=== PATIENT | male | born 1955 | race Caucasian/White ===

== ENCOUNTER → 2016-11-13 | Outpatient (CLI) | payer MEDICARE, OTHER ==
[~2016-11-13] MED LIST: ALBU8.5H5 INH; CEFD300C37 PO; DOXY100T PO; FLUT1DIS3 INH; HYDR-3307 PO; LISI40TA PO; LORA-445 PO; LORA10CA PO; METH4TAB2 PO; MORP15TA3 PO; MV-M1LOZ PO; PRED5TAB PO
== END | disposition home or self-care (01) ==
LOC: RAD 17:21
PROVIDERS: ATTEND Family Medicine
DX: S32.019A Unspecified fracture of first lumbar vertebra, initial encounter for closed fracture (principal); M43.27 Fusion of spine, lumbosacral region; X58.XXXA Exposure to other specified factors, initial encounter; Y93.89 Activity, other specified; Y92.89 Other specified places as the place of occurrence of the external cause; Y99.8 Other external cause status
CPT/HCPCS: 72100

== ENCOUNTER 2018-06-14 15:14 | Inpatient (IN) | payer MEDICARE ==
[~2018-06-14] VITALS: Ht 170.2 cm; Wt 89.7 kg
[2018-06-14] MEDS ORDERED: methylPREDNISolone SOD SUCC 125 MG/2 ML IVP ONE (15:30)
[2018-06-14] MEDS ORDERED: SODIUM CHLORIDE FLUSH 10ML SYR IVF ONE (15:30)
[2018-06-14] MEDS ORDERED: ALBUTEROL/IPRATROPIUM 2.5MG/0.5MG, 3 ML NPPB PRN (15:30)
[2018-06-14] MEDS ORDERED: methylPREDNISolone SOD SUCC 125 MG/2 ML ONE (15:39)
[2018-06-14] MEDS ORDERED: ALBUTEROL/IPRATROPIUM 2.5MG/0.5MG, 3 ML ONE (15:44)
[2018-06-14 15:51] LABS: BASOPHILS # (AUTO) 0.03 x10^3/uL (0-0.1); BASOPHILS % (AUTO) 0 % (0-1); EOSINOPHILS # (AUTO) 0.02 x10^3/uL (0-0.4); EOSINOPHILS % (AUTO) 0 % (1-7); LYMPHOCYTES # (AUTO) 0.76 x10^3/uL (1-3.4); LYMPHOCYTES % (AUTO) 9 % (22-44); MD NO; MEAN CORPUSCULAR HEMOGLOBIN 34.5 pg (27.5-34.5); MEAN CORPUSCULAR HGB CONC 33.1 g/dL (33.2-36.2); MEAN CORPUSCULAR VOLUME 104.1 fL (81-97); MEAN PLATELET VOLUME 9.8 fL (7.4-10.4); MONOCYTES # (AUTO) 1.09 x10^3/uL (0.2-0.8); MONOCYTES % (AUTO) 12 % (2-9); NEUTROPHILS % (AUTO) 78 % (42-75); PLATELET COUNT 168 x10^3/uL (130-400); RED BLOOD COUNT 5.27 x10^6/uL (4.38-5.82)
[2018-06-14] MEDS ORDERED: ALBUTEROL 0.5%, 20ML ONE (15:53)
[2018-06-14] MEDS ORDERED: LISI-167 PO (15:56)
[2018-06-14] MEDS ORDERED: AZITHROMYCIN 500 MG in SODIUM CHLORIDE 0.9% 250 ML IV ONE (16:00)
[2018-06-14] MEDS ORDERED: MAGNESIUM SULFATE PMX 2GM/50ML 50 ML IV ONE (16:00)
[2018-06-14 16:04] LABS: ALBUMIN 4.1 g/dL (3.4-5.0); ANION GAP 7 mmol/L (5-15); CALCIUM 9.4 mg/dL (8.5-10.1); CHLORIDE 97 mmol/L (98-107)
[2018-06-14] MEDS ORDERED: ALBUTEROL 0.5%, 20ML NPPBCONT ONE (16:05)
[2018-06-14 16:10] LABS: ALANINE AMINOTRANSFERASE 36 U/L (12-78); ALKALINE PHOSPHATASE 82 U/L (45-117); BILIRUBIN,TOTAL 0.6 mg/dL (0.2-1.0); TOTAL PROTEIN 7.9 g/dL (6.4-8.2); TROPONIN I < 0.015 ng/mL (0.000-0.045)
[2018-06-14] MEDS ORDERED: ONDANSETRON 2MG/ML, 2ML IVPush PRN (17:30)
[2018-06-14] MEDS ORDERED: ACETAMINOPHEN 325 MG TABLET PO PRN (17:30)
[2018-06-14] MEDS ORDERED: ENOXAPARIN 40 MG/0.4 ML SQ SCH (17:30)
[2018-06-14] MEDS ORDERED: CEFTRIAXONE 1,000 MG in SODIUM CHLORIDE 0.9% 50 ML IVPB SCH (17:30)
[2018-06-14] MEDS ORDERED: NICOTINE 14MG/24 HR PATCH.TD24 TD ONE (18:00)
[2018-06-14] MEDS: HEPARIN 5,000 UNITS/ML, 1ML SQ SCH (18:00)
[2018-06-14] MEDS: ALBUTEROL/IPRATROPIUM 2.5MG/0.5MG, 3 ML NPPB SCH ×2 (18:28→22:56)
[2018-06-14 20:00] VITALS: BP 109/70
[2018-06-14] MEDS: methylPREDNISolone SOD SUCC 40 MG/ML IVPush SCH (20:55)
[2018-06-14] MEDS: CEFTRIAXONE PMX 1GM/50ML 50 ML IVPB SCH (20:55)
[2018-06-14] MEDS ORDERED: HYDROcodone/APAP 10/325 MG TABLET PO SCH (21:00)
[2018-06-14 21:09] VITALS: BP 109/70
[2018-06-14] MEDS: DOXYCYCLINE 100 MG in DEXTROSE 5% 250 ML IVPB SCH (22:10)
[2018-06-15 01:31] VITALS: BP 114/69
[2018-06-15] MEDS: ALBUTEROL/IPRATROPIUM 2.5MG/0.5MG, 3 ML NPPB SCH ×6 (03:00→23:16)
[2018-06-15] MEDS: methylPREDNISolone SOD SUCC 40 MG/ML IVPush SCH ×4 (03:06→20:59)
[2018-06-15] MEDS: HYDROcodone/APAP 10/325 MG TABLET PO SCH ×4 (03:06→20:59)
[2018-06-15] MEDS: HEPARIN 5,000 UNITS/ML, 1ML SQ SCH ×2 (05:26→15:40)
[2018-06-15 08:05] VITALS: BP 131/78
[2018-06-15] MEDS ORDERED: FLUTICASONE/VILANTEROL 100-25MCG/INH INH SCH (09:00)
[2018-06-15] MEDS ORDERED: PLEASE ENTER ALLERGIES MC SCH (09:30)
[2018-06-15] MEDS: LISINOPRIL 10 MG TABLET PO SCH (09:52)
[2018-06-15] MEDS: BENZONATATE 100 MG CAPSULE PO SCH ×3 (09:52→20:59)
[2018-06-15] MEDS: DOXYCYCLINE 100 MG in DEXTROSE 5% 250 ML IVPB SCH ×2 (09:53→21:46)
[2018-06-15] MEDS ORDERED: ALBUTEROL/IPRATROPIUM 2.5MG/0.5MG, 3 ML NPPB PRN (11:00)
[2018-06-15 12:26] VITALS: BP 116/70
[2018-06-15] MEDS: BUDESONIDE 0.5 MG/2 ML INHA INH SCH ×2 (14:28→18:50)
[2018-06-15 20:12] VITALS: BP 104/66
[2018-06-15] MEDS: CEFTRIAXONE PMX 1GM/50ML 50 ML IVPB SCH (20:59)
[2018-06-16] MEDS: HYDROcodone/APAP 10/325 MG TABLET PO SCH ×4 (03:08→21:21)
[2018-06-16 03:14] VITALS: BP 116/75
[2018-06-16] MEDS: methylPREDNISolone SOD SUCC 40 MG/ML IVPush SCH (03:48)
[2018-06-16] MEDS: HEPARIN 5,000 UNITS/ML, 1ML SQ SCH ×2 (05:18→18:00)
[2018-06-16] MEDS: BUDESONIDE 0.5 MG/2 ML INHA INH SCH ×2 (06:40→18:12)
[2018-06-16] MEDS: ALBUTEROL/IPRATROPIUM 2.5MG/0.5MG, 3 ML NPPB SCH ×5 (06:40→22:12)
[2018-06-16 08:03] VITALS: BP 125/73
[2018-06-16] MEDS: LISINOPRIL 10 MG TABLET PO SCH (09:11)
[2018-06-16] MEDS: BENZONATATE 100 MG CAPSULE PO SCH ×3 (09:12→21:21)
[2018-06-16] MEDS: DOXYCYCLINE 100 MG in DEXTROSE 5% 250 ML IVPB SCH ×2 (10:16→22:18)
[2018-06-16] MEDS ORDERED: methylPREDNISolone SOD SUCC 40 MG/ML IVPush SCH (11:30)
[2018-06-16] MEDS ORDERED: methylPREDNISolone SOD SUCC 125 MG/2 ML ONE (12:41)
[2018-06-16 13:31] VITALS: BP 144/78
[2018-06-16] MEDS: methylPREDNISolone SOD SUCC 125 MG/2 ML IVPush SCH ×2 (13:42→21:21)
[2018-06-16 19:12] VITALS: BP 114/68
[2018-06-16] MEDS: CEFTRIAXONE PMX 1GM/50ML 50 ML IVPB SCH (21:20)
[2018-06-16] MEDS: GUAIFENESIN/DM 200-20MG, 10ML UDC PO PRN (21:28)
[2018-06-17 01:32] VITALS: BP 116/72
[2018-06-17] MEDS: HYDROcodone/APAP 10/325 MG TABLET PO SCH ×4 (03:12→20:57)
[2018-06-17 05:03] LABS: BASOPHILS # (AUTO) 0.01 x10^3/uL (0-0.1); BASOPHILS % (AUTO) 0 % (0-1); EOSINOPHILS # (AUTO) 0.03 x10^3/uL (0-0.4); EOSINOPHILS % (AUTO) 0 % (1-7); LYMPHOCYTES # (AUTO) 0.45 x10^3/uL (1-3.4); LYMPHOCYTES % (AUTO) 3 % (22-44); MD NO; MEAN CORPUSCULAR HEMOGLOBIN 34.8 pg (27.5-34.5); MEAN CORPUSCULAR HGB CONC 33.3 g/dL (33.2-36.2); MEAN CORPUSCULAR VOLUME 104.5 fL (81-97); MEAN PLATELET VOLUME 9.9 fL (7.4-10.4); MONOCYTES # (AUTO) 0.57 x10^3/uL (0.2-0.8); MONOCYTES % (AUTO) 4 % (2-9); NEUTROPHILS # (AUTO) 14.47 x10^3/uL (1.8-6.8); NEUTROPHILS % (AUTO) 93 % (42-75); PLATELET COUNT 177 x10^3/uL (130-400); RED BLOOD COUNT 4.61 x10^6/uL (4.38-5.82); RED CELL DISTRIBUTION WIDTH 17.2 % (9.4-14.8)
[2018-06-17 05:14] LABS: CALCIUM 9.1 mg/dL (8.5-10.1); CHLORIDE 100 mmol/L (98-107)
[2018-06-17 05:15] LABS: ANION GAP 5 mmol/L (5-15); CREATININE 1.26 mg/dL (0.7-1.3)
[2018-06-17] MEDS: methylPREDNISolone SOD SUCC 125 MG/2 ML IVPush SCH ×3 (05:16→19:49)
[2018-06-17] MEDS: HEPARIN 5,000 UNITS/ML, 1ML SQ SCH ×2 (05:42→16:12)
[2018-06-17] MEDS: BUDESONIDE 0.5 MG/2 ML INHA INH SCH (06:25)
[2018-06-17] MEDS: ALBUTEROL/IPRATROPIUM 2.5MG/0.5MG, 3 ML NPPB SCH ×5 (06:25→22:45)
[2018-06-17 06:44] VITALS: BP 134/7
[2018-06-17] MEDS: BENZONATATE 100 MG CAPSULE PO SCH ×3 (08:44→20:57)
[2018-06-17] MEDS: LISINOPRIL 10 MG TABLET PO SCH (08:44)
[2018-06-17] MEDS: DOXYCYCLINE 100 MG in DEXTROSE 5% 250 ML IVPB SCH ×2 (10:59→22:56)
[2018-06-17 13:13] VITALS: BP 129/77
[2018-06-17] MEDS: FLUTICASONE/VILANTEROL 100-25MCG/INH INH SCH (13:33)
[2018-06-17] MEDS ORDERED: ALBUTEROL/IPRATROPIUM 2.5MG/0.5MG, 3 ML ONE (14:12)
[2018-06-17 18:40] VITALS: BP 130/82
[2018-06-17] MEDS: CEFTRIAXONE PMX 1GM/50ML 50 ML IVPB SCH (20:57)
[2018-06-17] MEDS: GUAIFENESIN/DM 200-20MG, 10ML UDC PO PRN (20:57)
[2018-06-17] MEDS ORDERED: BUDESONIDE 0.5 MG/2 ML INHA INH SCH (21:00)
[2018-06-18 01:43] VITALS: BP 133/80
[2018-06-18] MEDS: HYDROcodone/APAP 10/325 MG TABLET PO SCH ×4 (02:51→20:53)
[2018-06-18] MEDS: GUAIFENESIN/DM 200-20MG, 10ML UDC PO PRN ×4 (02:52→20:53)
[2018-06-18] MEDS: methylPREDNISolone SOD SUCC 125 MG/2 ML IVPush SCH ×3 (04:00→20:53)
[2018-06-18] MEDS: HEPARIN 5,000 UNITS/ML, 1ML SQ SCH ×2 (04:44→17:10)
[2018-06-18] MEDS: ALBUTEROL/IPRATROPIUM 2.5MG/0.5MG, 3 ML NPPB SCH ×5 (06:00→23:00)
[2018-06-18 08:51] VITALS: BP 148/83
[2018-06-18] MEDS: LISINOPRIL 10 MG TABLET PO SCH (08:53)
[2018-06-18] MEDS: BENZONATATE 100 MG CAPSULE PO SCH ×3 (08:53→20:53)
[2018-06-18] MEDS: FLUTICASONE/VILANTEROL 100-25MCG/INH INH SCH (08:56)
[2018-06-18] MEDS: DOXYCYCLINE 100 MG in DEXTROSE 5% 250 ML IVPB SCH ×2 (11:23→22:59)
[2018-06-18 13:45] VITALS: BP 122/75
[2018-06-18 19:31] VITALS: BP 127/72
[2018-06-18] MEDS: CEFTRIAXONE PMX 1GM/50ML 50 ML IVPB SCH (20:53)
[2018-06-19] MEDS: GUAIFENESIN/DM 200-20MG, 10ML UDC PO PRN (03:00)
[2018-06-19] MEDS: HYDROcodone/APAP 10/325 MG TABLET PO SCH ×3 (03:00→15:06)
[2018-06-19 03:57] VITALS: BP 116/54
[2018-06-19] MEDS: HEPARIN 5,000 UNITS/ML, 1ML SQ SCH (04:33)
[2018-06-19 05:02] LABS: BASOPHILS # (AUTO) 0.01 x10^3/uL (0-0.1); BASOPHILS % (AUTO) 0 % (0-1); EOSINOPHILS % (AUTO) 0 % (1-7); LYMPHOCYTES # (AUTO) 0.31 x10^3/uL (1-3.4); LYMPHOCYTES % (AUTO) 3 % (22-44); MD NO; MEAN CORPUSCULAR HEMOGLOBIN 34.8 pg (27.5-34.5); MEAN CORPUSCULAR HGB CONC 33.1 g/dL (33.2-36.2); MEAN PLATELET VOLUME 9.8 fL (7.4-10.4); MONOCYTES # (AUTO) 0.52 x10^3/uL (0.2-0.8); MONOCYTES % (AUTO) 5 % (2-9); NEUTROPHILS % (AUTO) 92 % (42-75); PLATELET COUNT 168 x10^3/uL (130-400); RED BLOOD COUNT 4.51 x10^6/uL (4.38-5.82)
[2018-06-19] MEDS: methylPREDNISolone SOD SUCC 125 MG/2 ML IVPush SCH ×2 (05:04→13:32)
[2018-06-19 05:06] LABS: ANION GAP 6 mmol/L (5-15); CALCIUM 8.8 mg/dL (8.5-10.1); CHLORIDE 104 mmol/L (98-107); CREATININE 1.07 mg/dL (0.7-1.3)
[2018-06-19] MEDS: ALBUTEROL/IPRATROPIUM 2.5MG/0.5MG, 3 ML NPPB SCH ×3 (06:00→13:54)
[2018-06-19 07:37] VITALS: BP 136/84
[2018-06-19] MEDS: FLUTICASONE/VILANTEROL 100-25MCG/INH INH SCH (08:38)
[2018-06-19] MEDS: BENZONATATE 100 MG CAPSULE PO SCH ×2 (08:39→15:06)
[2018-06-19] MEDS: LISINOPRIL 10 MG TABLET PO SCH (08:39)
[2018-06-19] MEDS ORDERED: DOXY100T PO (11:13)
[2018-06-19] MEDS ORDERED: FLUT1AER INH (11:13)
[2018-06-19] MEDS ORDERED: PRED20TA PO (11:13)
[2018-06-19] MEDS ORDERED: BENZ-17 PO (11:13)
[2018-06-19] MEDS ORDERED: ALBU5SOL6 IH (11:13)
[2018-06-19] MEDS: DOXYCYCLINE 100 MG in DEXTROSE 5% 250 ML IVPB SCH (11:29)
[2018-06-19 12:08] VITALS: BP 150/82
== END 2018-06-19 15:45 | disposition home or self-care (01) | DRG 189 ==
LOC: ED 17:17 → EDIP 17:18 → ED 17:44 → 3NE 19:13
PROVIDERS: ADMIT Internal Medicine; ATTEND Internal Medicine
DX: J96.21 Acute and chronic respiratory failure with hypoxia (principal); J44.1 Chronic obstructive pulmonary disease with (acute) exacerbation; D75.1 Secondary polycythemia; M54.9 Dorsalgia, unspecified; G89.29 Other chronic pain; N18.3 Chronic kidney disease, stage 3 (moderate); Z60.2 Problems related to living alone; F17.210 Nicotine dependence, cigarettes, uncomplicated; G40.901 Epilepsy, unspecified, not intractable, with status epilepticus; I12.9 Hypertensive chronic kidney disease with stage 1 through stage 4 chronic kidney disease, or unspecified chronic kidney disease; I25.10 Atherosclerotic heart disease of native coronary artery without angina pectoris; I25.2 Old myocardial infarction; Z79.891 Long term (current) use of opiate analgesic; Z99.81 Dependence on supplemental oxygen; Z88.6 Allergy status to analgesic agent; Z90.49 Acquired absence of other specified parts of digestive tract
CPT/HCPCS: 36415; 71045; 80048; 80053; 82607; 83880; 84484; 85025; 87040; 90656; 93005; 94640; 94644; 96365; 96368; 96375; 99291; G0378; J0456; J0696; J7060; J7620; J7626; J2920; J2930; J3475; J7050

== ENCOUNTER → 2020-10-06 | Outpatient (CLI) | payer MEDICARE ==
[~2020-10-06] MED LIST changes: +ALBU5SOL6 IH; +BENZ-17 PO; +FLUT1AER INH; +HYDR-3248 PO; -HYDR-3307 PO; +LISI-167 PO; -LISI40TA PO; +LISI40TA9 PO; +MORP-29 PO; -MORP15TA3 PO; +PRED20TA PO
== END | disposition home or self-care (01) ==
LOC: WOUND 12:58
PROVIDERS: ATTEND Internal Medicine
DX: T81.89XA Other complications of procedures, not elsewhere classified, initial encounter (principal); L02.219 Cutaneous abscess of trunk, unspecified; J43.8 Other emphysema; I13.0 Hypertensive heart and chronic kidney disease with heart failure and stage 1 through stage 4 chronic kidney disease, or unspecified chronic kidney disease; N18.30 Chronic kidney disease, stage 3 unspecified; I50.9 Heart failure, unspecified; I25.10 Atherosclerotic heart disease of native coronary artery without angina pectoris; G89.29 Other chronic pain; G40.909 Epilepsy, unspecified, not intractable, without status epilepticus; I25.2 Old myocardial infarction; Z87.891 Personal history of nicotine dependence; Z90.49 Acquired absence of other specified parts of digestive tract; Z88.6 Allergy status to analgesic agent; Z79.891 Long term (current) use of opiate analgesic; Z86.19 Personal history of other infectious and parasitic diseases; Y83.8 Other surgical procedures as the cause of abnormal reaction of the patient, or of later complication, without mention of misadventure at the time of the procedure; Y92.238 Other place in hospital as the place of occurrence of the external cause
CPT/HCPCS: 97597; G0463

== ENCOUNTER → 2020-10-20 | Outpatient (CLI) | payer MEDICARE | END | disposition home or self-care (01) | LOC: WOUND 13:29 | PROVIDERS: ATTEND Internal Medicine | DX: T81.89XD Other complications of procedures, not elsewhere classified, subsequent encounter (principal); L02.219 Cutaneous abscess of trunk, unspecified; J43.8 Other emphysema; I13.0 Hypertensive heart and chronic kidney disease with heart failure and stage 1 through stage 4 chronic kidney disease, or unspecified chronic kidney disease; N18.30 Chronic kidney disease, stage 3 unspecified; I50.9 Heart failure, unspecified; I25.10 Atherosclerotic heart disease of native coronary artery without angina pectoris; G89.29 Other chronic pain; G40.909 Epilepsy, unspecified, not intractable, without status epilepticus; I25.2 Old myocardial infarction; Z87.891 Personal history of nicotine dependence; Z90.49 Acquired absence of other specified parts of digestive tract; Z88.6 Allergy status to analgesic agent; Z79.891 Long term (current) use of opiate analgesic; Z86.19 Personal history of other infectious and parasitic diseases; Y83.8 Other surgical procedures as the cause of abnormal reaction of the patient, or of later complication, without mention of misadventure at the time of the procedure | CPT/HCPCS: 97597 ==

== ENCOUNTER → 2020-11-03 | Outpatient (CLI) | payer MEDICARE | END | disposition home or self-care (01) | LOC: WOUND 13:17 | PROVIDERS: ATTEND Internal Medicine | DX: T81.89XD Other complications of procedures, not elsewhere classified, subsequent encounter (principal); L02.219 Cutaneous abscess of trunk, unspecified; J43.8 Other emphysema; I13.0 Hypertensive heart and chronic kidney disease with heart failure and stage 1 through stage 4 chronic kidney disease, or unspecified chronic kidney disease; N18.30 Chronic kidney disease, stage 3 unspecified; I50.9 Heart failure, unspecified; I25.10 Atherosclerotic heart disease of native coronary artery without angina pectoris; G89.29 Other chronic pain; G40.909 Epilepsy, unspecified, not intractable, without status epilepticus; I25.2 Old myocardial infarction; Z87.891 Personal history of nicotine dependence; Z90.49 Acquired absence of other specified parts of digestive tract; Z88.6 Allergy status to analgesic agent; Z79.891 Long term (current) use of opiate analgesic; Z86.19 Personal history of other infectious and parasitic diseases; Y83.8 Other surgical procedures as the cause of abnormal reaction of the patient, or of later complication, without mention of misadventure at the time of the procedure | CPT/HCPCS: 97597 ==

== ENCOUNTER → 2020-11-29 | Outpatient (CLI) | payer MEDICARE | END | disposition home or self-care (01) | LOC: WOUND 13:29 | PROVIDERS: ATTEND Internal Medicine | DX: T81.89XD Other complications of procedures, not elsewhere classified, subsequent encounter (principal); L02.219 Cutaneous abscess of trunk, unspecified; J43.8 Other emphysema; I13.0 Hypertensive heart and chronic kidney disease with heart failure and stage 1 through stage 4 chronic kidney disease, or unspecified chronic kidney disease; N18.30 Chronic kidney disease, stage 3 unspecified; I50.9 Heart failure, unspecified; I25.10 Atherosclerotic heart disease of native coronary artery without angina pectoris; G89.29 Other chronic pain; G40.909 Epilepsy, unspecified, not intractable, without status epilepticus; I25.2 Old myocardial infarction; Z87.891 Personal history of nicotine dependence; Z90.49 Acquired absence of other specified parts of digestive tract; Z88.6 Allergy status to analgesic agent; Z79.891 Long term (current) use of opiate analgesic; Z86.19 Personal history of other infectious and parasitic diseases; Y83.8 Other surgical procedures as the cause of abnormal reaction of the patient, or of later complication, without mention of misadventure at the time of the procedure | CPT/HCPCS: G0463 ==